=== PATIENT | female | born 1950 | race Asian ===

== ENCOUNTER 2017-02-21 07:27 | Emergency (ER) | payer OTHER, MEDICAID ==
[~2017-02-21] VITALS: Ht 162.6 cm; Wt 72.6 kg
[2017-02-21 07:30] VITALS: BP_SYST 153
[2017-02-21 08:48] VITALS: BP_SYST 147
== END 2017-02-21 08:48 | disposition home or self-care (01) ==
LOC: SED 07:27
DX: S30.0XXA Contusion of lower back and pelvis, initial encounter (principal); S80.11XA Contusion of right lower leg, initial encounter; V89.2XXA Person injured in unspecified motor-vehicle accident, traffic, initial encounter; Y93.89 Activity, other specified; Y92.488 Other paved roadways as the place of occurrence of the external cause; Y99.8 Other external cause status
CPT/HCPCS: 72100-TC; 73590-TC; 99284